=== PATIENT | female | born 1995 | race African-American/Black ===

== ENCOUNTER 2019-08-19 10:49 | Emergency (ER) | payer MEDICAID ==
[~2019-08-19] VITALS: Ht 170.2 cm; Wt 59.0 kg
[~2019-08-19 10:49] MED LIST: IBUPROFEN
[2019-08-19] MEDS ORDERED: ONDANSETRON 4MG ODT PO ONE (11:30)
[2019-08-19] MEDS ORDERED: KETOROLAC 30MG/ML VIAL IM ONE (11:30)
[2019-08-19 11:57] LABS: CLARITY URINE CLEAR (CLEAR); COLOR URINE YELLOW (YELLOW); KETONES URINE NEGATIVE (NEGATIVE); LEUKOCYTE ESTERASE URINE TRACE (NEGATIVE); NITRITE URINE NEGATIVE (NEGATIVE); OCCULT BLOOD URINE NEGATIVE (NEGATIVE); PROTEIN URINE NEGATIVE (NEGATIVE); SPECIFIC GRAVITY URINE 1.031 (1.005-1.030)
[2019-08-19 12:30] VITALS: BP 117/68
== END 2019-08-19 12:31 | disposition home or self-care (01) ==
LOC: ER 10:59
DX: R51 Headache (principal); R09.81 Nasal congestion; J02.9 Acute pharyngitis, unspecified
CPT/HCPCS: 81003; 81025; 87070; 87430; 96372; 99283; J1885; Q0162

== ENCOUNTER 2021-01-11 16:49 | Emergency (ER) | payer MEDICAID, OTHER ==
[~2021-01-11] VITALS: Ht 160 cm; Wt 68.5 kg
[2021-01-11] MEDS ORDERED: IBUPROFEN 600MG TABLET PO ONE (17:30)
[2021-01-11 17:57] VITALS: BP 150/100
== END 2021-01-11 18:13 | disposition home or self-care (01) ==
LOC: ER 17:11
DX: R51.9 Headache, unspecified (principal)
CPT/HCPCS: 99283